=== PATIENT | female | born 1955 | race Caucasian/White ===

== ENCOUNTER → 2018-02-15 | Outpatient (CLI) | payer MEDICARE, OTHER ==
--- NOTE | 2018-02-24 15:17 | MM ---
Reason for exam: screening (asymptomatic). History: Patient is postmenopausal. MG Screening Mammo w CAD Bilateral CC and MLO view(s) were taken. The breast tissue is heterogeneously dense. This may lower the sensitivity of mammography. Nodularity centrally on left breast CC view is more defused. Scattered round and punctate calcifications unchanged. ASSESSMENT: Incomplete: need additional imaging evaluation, BI-RAD 0 RECOMMENDATION: Special view mammogram of the left breast.
== END | disposition home or self-care (01) ==
LOC: RADMAMWWP 10:58
PROVIDERS: ATTEND Family Medicine
DX: Z12.31 Encounter for screening mammogram for malignant neoplasm of breast (principal)
CPT/HCPCS: 77067

== ENCOUNTER → 2018-03-21 | Outpatient (CLI) | payer MEDICARE, OTHER ==
--- NOTE | 2018-03-21 10:37 | MM ---
Reason for exam: additional evaluation requested from abnormal screening. Last mammogram was performed 1 month ago. History: Patient is postmenopausal. Physical Findings: Nurse Summary: less than 0.5cm nodule in the left breast at 11-12 o'clock (nurse kp). MG 3D Work Up W/Cad LT Spot compression CC, spot compression MLO, and ML view(s) were taken of the left breast. Prior study comparison: February 15, 2018, bilateral MG screening mammo w CAD. The breast tissue is heterogeneously dense. This may lower the sensitivity of mammography. There is no discrete abnormality on compression. Unable to complete an ML view due to patient discomfort. These results were verbally communicated with the patient and result sheet given to the patient on 03/21/18. ASSESSMENT: Incomplete: need additional imaging evaluation, BI-RAD 0 RECOMMENDATION: Ultrasound of the left breast.
--- NOTE | 2018-03-21 10:39 | USB ---
Reason for exam: additional evaluation requested from abnormal screening. History: Patient is postmenopausal. US Breast Workup Limited LT Left limited breast ultrasound including focal area of concern, retroareolar and axilla demonstrates a 5 x 2 x 2mm mixed lesion too small to characterize at 12 o'clock BB. These results were verbally communicated with the patient and result sheet given to the patient on 03/21/18. ASSESSMENT: Suspicious, BI-RAD 4 RECOMMENDATION: Surgical consultation and ultrasound core biopsy of the left breast. (left breast ultrasound finding) Called with mammographic findings and has scheduled an appointment for the patient for 03/23/[address] Melendrez. PRELIMINARY REPORT CALLED AND FAXED TO DR. MELENDREZ ON 03/21/18.
== END ==
LOC: RADMAMWWP 08:54
PROVIDERS: ATTEND Family Medicine
DX: R92.8 Other abnormal and inconclusive findings on diagnostic imaging of breast (principal)
CPT/HCPCS: 77065; 76642; G0279; 77061

== ENCOUNTER → 2018-04-29 | Day surgery (SDC) | payer MEDICARE, OTHER ==
[2018-04-29 11:05] VITALS: BMI 40.1
[2018-04-29 12:19] VITALS: BP 140/67; PULSE 90; RESP 16; TEMP 98.2
--- NOTE | 2018-04-29 12:58 | USB ---
EXAMINATION TYPE: US discontinued breast bx LT DATE OF EXAM: 04/29/2018 CLINICAL HISTORY: Abnormal mammogram. Abnormal ultrasound TECHNIQUE: Ultrasound guided core biopsy of left breast with clip placement and follow-up two-view ma mmogram. COMPARISON: Prior mammogram and ultrasound March 21, 2018 FINDINGS: The procedure of ultrasound guided core biopsy was explained to the patient. Benefits, alt ernatives, and risks were discussed. An informed consent was then obtained. Because of patient's underlying medical condition, procedure is attempted with patient in wheelchair. The patient was placed in supine positioning for imaging and for the procedure. Preprocedure imagin g redemonstrates a 4 x 3 mm oval hypoechoic area 12:00 position in the left breast. The overlying ski n was prepped and draped in usual sterile fashion. Lidocaine buffered with bicarbonate was used as a nesthetic into the skin and subcutaneous tissue up to area of concern in the left breast. Patient unger d severe anxiety prior to procedure. Patient had severe pain on insertion of subcutaneous anesthetic. Under ultrasound guidance, a 13-gauge vacuum assisted biopsy gun device was advanced into the left br east. Upon trying to attempt ideal positioning patient experienced severe pain. Biopsy device was wit hdrawn prior to attempted sampling with a forming fluid collection or hematoma long the biopsy track. There must have been subcutaneous arterial vessel puncture. Pressure was held for over 10 minutes t o stop bleed by myself and then by nurse. Because of above and low suspicion lesion procedure was canceled. Patient has moderate to large size hematoma with bruising on scan despite nonsampling. Patient given strict instructions for icing and resting as well as comfort, hematoma should slowly resolve. Ordering surgeon made aware of complication and cancellation by mammography nurses shortly after proc edure was attempted. IMPRESSION: Unsuccessful ultrasound guided core biopsy of area of concern in the left breast as scar led above. I had low suspicion for lesion on review of case prior to attempted procedure, I am okay with BI-RADS 3 probable benign finding and six-month follow-up. Recommendation: As above. I would also consider hematology consult to assess coagulability due to sig nificant bleed without attempted sampling to ensure patient's blood or coagulability profile is in id eal range.
== END ==
LOC: RADUSWWP 10:36
PROVIDERS: ATTEND Surgery
DX: R92.8 Other abnormal and inconclusive findings on diagnostic imaging of breast (principal); Z53.8 Procedure and treatment not carried out for other reasons
CPT/HCPCS: 76641; 19083; J2001

== ENCOUNTER 2018-06-15 10:38 | Inpatient (IN) | payer MEDICARE, OTHER ==
[2018-06-15] MEDS ORDERED: ASPIRIN 81 MG PO STA (11:04)
[2018-06-15] MEDS ORDERED: NITROGLYCERIN OINT 1 INCH/GM PACKET TOPICAL STA (11:04)
--- NOTE | 2018-06-15 11:12 | ED ---
General Adult HPI - General Chief complaint: Chest Pain Stated complaint: Chest Pain Time Seen by Provider: 06/15/18 10:45 Source: EMS, RN notes reviewed Mode of arrival: EMS Limitations: altered mental status, physical limitation - History of Present Illness Initial comments: This is a 62-year-old female who is developmentally delayed and lives in a longterm. Patient was complaining about chest pain. Patient is an extremely poor historian but she is consistent with this complaint of chest pain today. Patient did not seem to be short of breath according to staff there was no episode of diaphoresis. Patient has not had any vomiting or diarrhea that they know of. Patient hasn't had any recent fever or chills. Patient has a history of high cholesterol but no history of any heart disease diabetes or high blood pressure. - Related Data Home Medications Medication Instructions Recorded Confirmed Potassium Chloride [Klor-Con 20] 20 meq PO DAILY 09/02/13 06/15/18 Furosemide [Lasix] 40 mg PO DAILY 12/18/14 06/15/18 Aspirin [Adult Low Dose Aspirin EC] 81 mg PO DAILY 04/13/18 06/15/18 Atorvastatin [Lipitor] 10 mg PO HS 04/13/18 06/15/18 Loratadine [Claritin] 10 mg PO DAILY 04/13/18 06/15/18 Losartan [Cozaar] 25 mg PO DAILY 04/13/18 06/15/18 Acetaminophen [Tylenol Extra 500 mg PO BID PRN 06/15/18 06/15/18 Strength] Divalproex [Depakote] 500 mg PO BID 06/15/18 06/15/18 Allergies Allergy/AdvReac Type Severity Reaction Status Date / Time No Known Allergies Allergy Verified 06/15/18 10:41 Review of Systems ROS Statement: Those systems with pertinent positive or pertinent negative responses have been documented in the HPI. ROS Other: All systems not noted in ROS Statement are negative. Past Medical History Past Medical History: GERD/Reflux, Hyperlipidemia, Hypertension Additional Past Medical History / Comment(s): Cerebral Palsy - per longterm, no other medical hx or surgical hx on file. mild mental retardation. edema in legs. Pt non weight bearing/in wheelchair. 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 Patient is nontoxic and well- hydrated and is in mild distress. ENT: Neck is soft and supple. No significant lymphadenopathy is noted. Oropharynx is clear. Moist mucous membranes. Neck has full range of motion without eliciting any pain. EYES: The sclera were anicteric and conjunctiva were pink and moist. Extraocular movements were intact and pupils were equal round and reactive to light. Eyelids were unremarkable. PULMONARY: Unlabored respirations. Good breath sounds bilaterally. No audible rales rhonchi or wheezing was noted. CARDIOVASCULAR: There is a regular rate and rhythm without any murmurs gallops or rubs. ABDOMEN: Soft and nontender with normal bowel sounds. SKIN: Skin is clear with no lesions or rashes and otherwise unremarkable. NEUROLOGIC: Patient is alert and oriented to her baseline according to staff MUSCULOSKELETAL: Patient's able to move both upper extremities equally and with equal strength. Patient is unable to move either leg. Lack of movement of her legs is at her baseline. LYMPHATICS: No significant lymphadenopathy is noted PSYCHIATRIC: Unable to assess Limitations: altered mental status, physical limitation Course Vital Signs 06/15/18 10:45 Temperature 97.9 F Pulse Rate 95 Respiratory 19 Rate Blood Pressure 109/70 O2 Sat by Pulse 94 L Oximetry Medical Decision Making - Medical Decision Making Chest x-ray showed no acute abnormality. I talked with Dr. Flores he agreed to admit her send the patient I consult cardiology. I continued aspirin and Nitropaste on the floor. - Lab Data Result diagrams: 06/15/18 10:53 06/15/18 10:53 Lab Results 06/15/18 06/15/18 06/15/18 Range/Units 10:53 10:53 10:53 WBC 5.2 (3.8-10.6) k/uL RBC 4.91 (3.80-5.40) m/uL Hgb 15.4 (11.4-16.0) gm/dL Hct 46.9 H (34.0-46.0) % MCV 95.6 (80.0-100.0) fL MCH 31.3 (25.0-35.0) pg MCHC 32.8 (31.0-37.0) g/dL RDW 13.8 (11.5-15.5) % Plt Count 213 (150-450) k/uL Neutrophils % (Manual) 64 % Lymphocytes % (Manual) 26 % Monocytes % (Manual) 10 % Neutrophils # (Manual) 3.33 (1.3-7.7) k/uL Lymphocytes # (Manual) 1.35 (1.0-4.8) k/uL Monocytes # (Manual) 0.52 (0-1.0) k/uL Nucleated RBCs 0 (0-0) /100 WBC Manual Slide Review Performed RBC Morphology Normal PT 11.1 (9.0-12.0) sec INR 1.0 (<1.2) APTT 25.3 (22.0-30.0) sec Sodium 138 (137-145) mmol/L Potassium 3.9 (3.5-5.1) mmol/L Chloride 101 (98-107) mmol/L Carbon Dioxide 33 H (22-30) mmol/L Anion Gap 4 mmol/L BUN 13 (7-17) mg/dL Creatinine 0.61 (0.52-1.04) mg/dL Est GFR (CKD-EPI)AfAm >90 (>60 ml/min/1.73 sqM) Est GFR (CKD-EPI)NonAf >90 (>60 ml/min/1.73 sqM) Glucose 81 (74-99) mg/dL Calcium 9.1 (8.4-10.2) mg/dL Magnesium 1.8 (1.6-2.3) mg/dL Total Bilirubin 0.7 (0.2-1.3) mg/dL AST 20 (14-36) U/L ALT 15 (9-52) U/L Alkaline Phosphatase 65 (38-126) U/L Troponin I (0.000-0.034) ng/mL Total Protein 6.2 L (6.3-8.2) g/dL Albumin 3.5 (3.5-5.0) g/dL 06/15/18 Range/Units 10:53 WBC (3.8-10.6) k/uL RBC (3.80-5.40) m/uL Hgb (11.4-16.0) gm/dL Hct (34.0-46.0) % MCV (80.0-100.0) fL MCH (25.0-35.0) pg MCHC (31.0-37.0) g/dL RDW (11.5-15.5) % Plt Count (150-450) k/uL Neutrophils % (Manual) % Lymphocytes % (Manual) % Monocytes % (Manual) % Neutrophils # (Manual) (1.3-7.7) k/uL Lymphocytes # (Manual) (1.0-4.8) k/uL Monocytes # (Manual) (0-1.0) k/uL Nucleated RBCs (0-0) /100 WBC Manual Slide Review RBC Morphology PT (9.0-12.0) sec INR (<1.2) APTT (22.0-30.0) sec Sodium (137-145) mmol/L Potassium (3.5-5.1) mmol/L Chloride (98-107) mmol/L Carbon Dioxide (22-30) mmol/L Anion Gap mmol/L BUN (7-17) mg/dL Creatinine (0.52-1.04) mg/dL Est GFR (CKD-EPI)AfAm (>60 ml/min/1.73 sqM) Est GFR (CKD-EPI)NonAf (>60 ml/min/1.73 sqM) Glucose (74-99) mg/dL Calcium (8.4-10.2) mg/dL Magnesium (1.6-2.3) mg/dL Total Bilirubin (0.2-1.3) mg/dL AST (14-36) U/L ALT (9-52) U/L Alkaline Phosphatase (38-126) U/L Troponin I <0.012 (0.000-0.034) ng/mL Total Protein (6.3-8.2) g/dL Albumin (3.5-5.0) g/dL Disposition Clinical Impression: Chest pain Disposition: ADMITTED IP TO THIS [facility] Referrals: Tino Glass MD [Primary Care Provider] - 1-2 days Time of Disposition: 12:10
[2018-06-15 11:27] LABS: Partial Thromboplastin Time 25.3 sec (22.0-30.0); Prothrombin Time 11.1 sec (9.0-12.0)
--- NOTE | 2018-06-15 11:27 | XR ---
EXAMINATION TYPE: XR chest 2V DATE OF EXAM: 06/15/2018 COMPARISON: 11/07/2014 HISTORY: Shortness of breath TECHNIQUE: Frontal and lateral views of the chest are obtained. FINDINGS: Scattered senescent parenchymal changes noted. Hyperinflation compatible with COPD. Patchy basilar infiltrates noted. Correlate for developing pneumonia or atelectasis. Heart size is stable. Mediastinal structures are stable and grossly unremarkable. No evidence for hilar prominence. Degenerative changes dorsal spine. IMPRESSION: 1. Patchy basilar infiltrates noted. Correlate for developing pneumonia or atelectasis.
[2018-06-15 11:28] LABS: ALT 15 U/L (9-52); AST 20 U/L (14-36); Albumin 3.5 g/dL (3.5-5.0); Alkaline Phosphatase 65 U/L (38-126); Anion Gap 4 mmol/L; Blood Urea Nitrogen 13 mg/dL (7-17); Calcium 9.1 mg/dL (8.4-10.2); Carbon Dioxide 33 mmol/L (22-30); Chloride 101 mmol/L (98-107); Glucose 81 mg/dL (74-99); Magnesium 1.8 mg/dL (1.6-2.3); Potassium 3.9 mmol/L (3.5-5.1); Sodium 138 mmol/L (137-145); Total Bilirubin 0.7 mg/dL (0.2-1.3); Total Protein 6.2 g/dL (6.3-8.2)
[2018-06-15 11:41] LABS: HCT 46.9 % (34.0-46.0); HGB 15.4 gm/dL (11.4-16.0); MCH 31.3 pg (25.0-35.0); MCHC 32.8 g/dL (31.0-37.0); MCV 95.6 fL (80.0-100.0); Mean Platelet Volume 7.1; Platelet Count 213 k/uL (150-450); RBC 4.91 m/uL (3.80-5.40); RDW 13.8 % (11.5-15.5); WBC 5.2 k/uL (3.8-10.6)
[2018-06-15 12:04] LABS: Lymphocytes # (M) 1.35 k/uL (1.0-4.8); Monocytes # (M) 0.52 k/uL (0-1.0); Neutrophils # (M) 3.33 k/uL (1.3-7.7); Neutrophils % (M) 64 %; Nucleated Red Blood Cells 0 /100 WBC (0-0); Total Cells Counted 100
[2018-06-15] MEDS ORDERED: NITROGLYCERIN SL TABS 0.4 MG TAB SUBLINGUAL PRN (12:11)
[2018-06-15 12:46] VITALS: BMI 40.4
[2018-06-15] MEDS ORDERED: ACETAMINOPHEN TAB 500 MG TAB PO PRN (17:40)
[2018-06-15] MEDS: DIVALPROEX 500 MG TABLET.DR PO SCH (20:56)
[2018-06-15] MEDS: NITROGLYCERIN OINT 1 INCH/GM PACKET TOPICAL SCH ×2 (20:56→23:41)
[2018-06-15] MEDS ORDERED: ATORVASTATIN 10 MG TAB PO SCH (21:00)
[2018-06-15] MEDS: CLINDAMYCIN 150 MG CAP PO SCH (23:08)
[2018-06-15] MEDS: ENOXAPARIN 40 MG/0.4 ML SYRINGE SQ SCH (23:09)
--- NOTE | 2018-06-15 23:46 | HP ---
HISTORY AND PHYSICAL DATE OF ADMISSION: 06/15/2018 DATE OF SERVICE: 06/15/2018 PRESENTING COMPLAINT: Chest pain. HISTORY OF PRESENTING COMPLAINT: This is a 62-year-old patient who follows with visiting physician Dr. Glass. Chronic stable medical conditions include GERD, hyperlipidemia, dysphagia. The patient needs her food to be cut up so she can feed herself; always has aspiration precautions. She has been reported to have a tumor in her throat that was treated with chemo radiation. It is apparently a non-malignant tumor. The patient has cerebral palsy and is mentally delayed. Patient uses a Stevan lift into wheelchair. The patient is incontinent of both stool and urine. The patient was brought in when she complained of chest pain, pointing a finger from the mid sternum to the epigastric area. It does not seem to radiate. There was no nausea or vomiting. No fever or chills. Like stated, because of cerebral palsy it is difficult to really get a history from her. She is dysarthric. REVIEW OF SYSTEMS: CONSTITUTIONAL: No fever or chills. HEENT: None. RESPIRATORY: None. CARDIOVASCULAR: As above. GASTROINTESTINAL: Heartburn. GENITOURINARY: Doubly incontinent. MUSCULOSKELETAL: None. DERMATOLOGICAL: None. HEMATOLOGICAL: None. LYMPHATICS: None. PSYCHIATRY: Not really able to assess. NEUROLOGICAL: Chronic dysphagia. Patient needs Stevan lift to be transferred. PAST MEDICAL HISTORY: 1. GERD. 2. Hyperlipidemia. 3. Dysphagia. Patient has to have cut-up food. 4. Had a tumor in the throat, treated with chemo and radiation; supposed to non- cancerous. 5. Cerebral palsy. 6. Not weight-bearing. Patient needs Stevan lift. 7. Doubly incontinent. 8. Bilateral lower extremity edema. PAST SURGICAL HISTORY: 1. Thyroid surgery. 2. PEG tube radiation. PSYCH HISTORY: Anxiety. SOCIAL HISTORY: Patient resides at [facility]. Has a public guardian. [id number]. Does use a Stevan lift. FAMILY HISTORY: Patient cannot tell. HOME MEDICATIONS: 1. Cozaar 25 mg a day. 2. Lasix 40 mg a day. 3. Tylenol Extra Strength 500 mg b.i.d. p.r.n. 4. Potassium 20 mEq a day. 5. Claritin 10 mg a day. 6. Depakote 500 mg b.i.d. 7. Lipitor 10 mg at bedtime. 8. Aspirin 81 mg a day. ALLERGIES: NONE. PHYSICAL EXAMINATION: VITAL SIGNS: Temperature 97.9, pulse 95, respiration 19, blood pressure 109/70, pulse ox 94% on room air. GENERAL APPEARANCE: Well built; BMI 40.4. Sitting up, awake. EYES: Pupils equal. Conjunctivae normal. HEENT: External appearance of nose and ears normal. Oral cavity normal. NECK: JVD not raised. Mass not palpable. RESPIRATORY: Effort normal. Lungs are clear. CARDIOVASCULAR: First and second sounds normal. No edema. ABDOMEN: Soft, non-tender. Liver and spleen not palpable. LYMPHATIC: No lymph node palpable in neck or axillae. PSYCHIATRY: Patient is able to answer some simple questions. NEUROLOGICAL: Pupils equal. No facial asymmetry. Dysarthric. Has sensation in lower extremity but not really moving it. INVESTIGATIONS: White count 5.2, hemoglobin 15.4, potassium 3.9. BUN and creatinine normal. Troponin x2 negative. EKG tracing, personally reviewed by me, shows sinus rhythm. Chest x-ray film, personally reviewed by me, is an expiratory film. Questionable pulmonary venous prominence with infiltrates. ASSESSMENT: 1. Possible bilateral pneumonia. Cannot rule out aspiration. 2. Obesity; body mass index 40.4. 3. Gastroesophageal reflux disease. 4. Hyperlipidemia. 5. Chronic dysphagia. Patient needs her food to be cut up. 6. 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 7. Cerebral palsy with mental retardation. 8. Doubly incontinent. 9. Bilateral leg edema. PLAN: At this point we will start treating the patient for pneumonia. It may be noted there is no fever and patient's white count is minimal; this could be chemical pneumonitis. [id number] chest pain, but will get a cardiology opinion. Home medications are resumed. Will treat the patient with IV clindamycin. Get a cardiology opinion. MMODL / IJN: [id number] /
[2018-06-16 03:52] LABS: Cholesterol 126 mg/dL (<200); HDL Cholesterol 41 mg/dL (40-60); LDL Cholesterol,Calculated 57 mg/dL (0-99); Triglycerides 141 mg/dL (<150)
[2018-06-16] MEDS: NITROGLYCERIN OINT 1 INCH/GM PACKET TOPICAL SCH (06:14)
[2018-06-16 07:34] VITALS: RESP 18
[2018-06-16] MEDS ORDERED: FUROSEMIDE 40 MG TAB PO SCH (09:00)
[2018-06-16] MEDS ORDERED: LOSARTAN 25 MG TAB PO SCH (09:00)
[2018-06-16] MEDS ORDERED: ASPIRIN 325 MG TAB PO SCH (09:00)
[2018-06-16] MEDS ORDERED: LORATADINE 10 MG TAB PO SCH (09:00)
[2018-06-16] MEDS ORDERED: NON-FORMULARY DRUG (Aspirin [Adult Low Dose Aspirin Ec] 81 MG) PO SCH (09:00)
[2018-06-16] MEDS ORDERED: ASPIRIN 81 MG PO SCH (09:00)
[2018-06-16] MEDS: ENOXAPARIN 40 MG/0.4 ML SYRINGE SQ SCH (09:27)
[2018-06-16] MEDS: DIVALPROEX 500 MG TABLET.DR PO SCH (09:27)
[2018-06-16] MEDS: CLINDAMYCIN 150 MG CAP PO SCH ×2 (09:27→13:27)
--- NOTE | 2018-06-16 09:54 | P.CRDCN ---
History of Present Illness History of present illness: This is a pleasant 62-year-old female past medical history significant for hypertension, dyslipidemia, dysphagia and cerebral palsy. 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 We have been asked to see her in consultation secondary to chest discomfort. Per the patient yesterday after being given her pills she states she felt a burning in the midsternal region radiating down to the epigastric. She states this pain has decreased in intensity however she continues to have what she describes as "bone pain" at the base of the neck on the sternum. She denies any pain in the back, neck, jaw or arms. She denies any shortness of breath, dizziness, nausea, vomiting or diaphoresis. She states she has been coughing a dry cough for the previous 2 days. She is somewhat of a poor historian. She is currently being treated for aspiration pneumonia per the primary care team. EKG reveals sinus mechanism with very minimal ST depression located in the precordial leads. When compared to previous EKG from 2013. Chest x-ray reveals patchy basilar infiltrates. Laboratory data reviewed, WBC 5.2, hemoglobin 15.4, weight was 213, sodium 138, potassium 3.9, creatinine 0.61, magnesium 1.8, cardiac enzymes negative 3, LDL 57 HDL 41. Current cardiac medications include aspirin 81 mg daily, atorvastatin 10 mg daily, Lasix 40 mg daily and losartan 25 mg daily. At the time of my exam: CONSTITUTIONAL: Denies fever. Denies chills. EYES: Denies blurred vision. Denies vision changes. Denies eye pain. EARS, NOSE, MOUTH & THROAT: Denies headache. Denies sore throat. Denies ear pain. CARDIOVASCULAR: Complains of pain in the upper anterior chest that is reproducible. Denies shortness of breath. Denies orthopnea. Denies PND. Denies palpitations. RESPIRATORY: Denies cough. GASTROINTESTINAL: Denies abdominal pain. Denies diarrhea. Denies constipation. Denies nausea. Denies vomiting. MUSCULOSKELETAL: Denies myalgias. INTEGUMENTARY: Denies pruitis. Denies rash. NEUROLOGIC: Denies numbness. Denies tingling. Denies weakness. PSYCHIATRIC: Denies anxiety. Denies depression. ENDOCRINE: Denies fatigue. Denies weight change. Denies polydipsia. Denies polyurina. GENITOURINARY: Denies burning, hematuria or urgency with micturation. HEMATOLOGIC: Denies history of anemia. Denies bleeding. Blood pressure 120/78 heart rate 87 afebrile maintaining oxygen saturation on room air GENERAL: This is a 62-year-old female in no apparent distress at the time of my examination. HEENT: Head is atraumatic, normocephalic. Pupils are equal, round. Sclerae anicteric. Conjunctivae are clear. Mucous membranes of the mouth are moist. Neck is supple. There is no jugular venous distention. No carotid bruit is heard. LUNGS: Clear to auscultation no wheezes, rales or rhonchi. No chest wall tenderness is noted on palpation or with deep breathing. HEART: Regular rate and rhythm without murmurs, rubs or gallops. S1 and S2 heard. ABDOMEN: Soft, nontender. Bowel sounds are heard. No organomegaly noted. EXTREMITIES: No evidence of peripheral edema and no calf tenderness noted. VASCULAR: Radial and dorsalis pedis pulses palpated, no evidence of clubbing. NEUROLOGIC: Patient is awake, alert and oriented x3. ASSESSMENT Chest pain, atypical for angina. An acute coronary event has been ruled out. Hypertension Dyslipidemia History of cerebral palsy History of dysphasia Morbid obesity, BMI 40 PLAN An acute coronary event has been ruled out. Obtain 2-D echocardiogram and Doppler study to assess cardiac structure and function. Symptoms are very atypical for angina and are mildly reproducible on palpation. Pain may be related to possible aspiration pneumonia as well as costochondritis due to coughing. No further cardiac workup at this time. Continue current medical regimen. Thank you kindly for this consultation. Nurse Practitioner note has been reviewed, I agree with a documented findings and plan of care. Patient was seen and examined. Past Medical History Past Medical History: GERD/Reflux, Hyperlipidemia Additional Past Medical History / Comment(s): DYSPHAGIA-pt needs food cut up and can feed self with staff watching her, HOB up at all times, has "tumor" in her throat treated with chemo/radiation but staff state it is noncancerous, cerebral palsey/mentally delayed, nonweight bearing-is chase lifted to wheelchair, needs to be turned-unable to do herself, incontinent urine/stool, bilateral leg edema. History of Any Multi-Drug Resistant Organisms: None Reported Past Surgical History: No Surgical Hx Reported Additional Past Surgical History / Comment(s): Thyroid surgery, peg tube during throat radiation-out now. Past Anesthesia/Blood Transfusion Reactions: No Reported Reaction Smoking Status: Never smoker - Past Family History Father History Unknown: Yes Mother History Unknown: Yes Medications and Allergies Home Medications Medication Instructions Recorded Confirmed Type Potassium Chloride [Klor-Con 20] 20 meq PO DAILY 09/02/13 06/15/18 History Furosemide [Lasix] 40 mg PO DAILY 12/18/14 06/15/18 History Aspirin [Adult Low Dose Aspirin EC] 81 mg PO DAILY 04/13/18 06/15/18 History Atorvastatin [Lipitor] 10 mg PO HS 04/13/18 06/15/18 History Loratadine [Claritin] 10 mg PO DAILY 04/13/18 06/15/18 History Losartan [Cozaar] 25 mg PO DAILY 04/13/18 06/15/18 History Acetaminophen [Tylenol Extra 500 mg PO BID PRN 06/15/18 06/15/18 History Strength] Divalproex [Depakote] 500 mg PO BID 06/15/18 06/15/18 History Allergies Allergy/AdvReac Type Severity Reaction Status Date / Time No Known Allergies Allergy Verified 06/15/18 10:41 Physical Exam Vitals: Vital Signs Temp Pulse Pulse Pulse Resp BP BP 06/16/18 07:15 97.5 F L 87 18 06/16/18 03:29 98.0 F 103 H 15 107/55 06/16/18 03:18 14 06/15/18 23:46 98.0 F 62 14 137/71 06/15/18 23:30 16 06/15/18 20:00 16 06/15/18 19:16 97.5 F L 92 16 114/75 06/15/18 15:49 06/15/18 15:09 97.5 F L 96 18 102/65 06/15/18 14:30 92 20 102/69 06/15/18 14:00 89 18 105/62 06/15/18 13:30 86 113/73 06/15/18 13:00 86 17 129/73 06/15/18 12:30 86 18 121/73 06/15/18 12:00 84 16 122/70 06/15/18 11:30 85 15 105/80 06/15/18 10:45 97.9 F 95 19 109/70 BP Pulse Ox 06/16/18 07:15 128/78 94 L 06/16/18 03:29 96 06/16/18 03:18 06/15/18 23:46 95 06/15/18 23:30 06/15/18 20:00 06/15/18 19:16 97 06/15/18 15:49 97 06/15/18 15:09 97 06/15/18 14:30 95 06/15/18 14:00 98 06/15/18 13:30 97 06/15/18 13:00 100 06/15/18 12:30 99 06/15/18 12:00 97 06/15/18 11:30 96 06/15/18 10:45 94 L Intake and Output 06/15/18 06/16/18 06/16/18 22:59 06:59 14:59 Intake Total 236 0 Balance 236 0 Intake: Oral 236 0 Other: Voiding Method Diaper Diaper Diaper Incontinent Incontinent Incontinent # Voids 1 1 Results 06/15/18 10:53 06/15/18 10:53 Cardiac Enzymes 06/15/18 06/15/18 06/15/18 Range/Units 10:53 10:53 18:00 AST 20 (14-36) U/L Troponin I <0.012 <0.012 (0.000-0.034) ng/mL 06/15/18 Range/Units 23:19 AST (14-36) U/L Troponin I <0.012 (0.000-0.034) ng/mL Coagulation 06/15/18 Range/Units 10:53 PT 11.1 (9.0-12.0) sec APTT 25.3 (22.0-30.0) sec Lipids 06/15/18 Range/Units 10:53 Triglycerides 141 (<150) mg/dL Cholesterol 126 (<200) mg/dL HDL Cholesterol 41 (40-60) mg/dL CBC 06/15/18 Range/Units 10:53 WBC 5.2 (3.8-10.6) k/uL RBC 4.91 (3.80-5.40) m/uL Hgb 15.4 (11.4-16.0) gm/dL Hct 46.9 H (34.0-46.0) % Plt Count 213 (150-450) k/uL Comprehensive Metabolic Panel 06/15/18 Range/Units 10:53 Sodium 138 (137-145) mmol/L Potassium 3.9 (3.5-5.1) mmol/L Chloride 101 (98-107) mmol/L Carbon Dioxide 33 H (22-30) mmol/L BUN 13 (7-17) mg/dL Creatinine 0.61 (0.52-1.04) mg/dL Glucose 81 (74-99) mg/dL Calcium 9.1 (8.4-10.2) mg/dL AST 20 (14-36) U/L ALT 15 (9-52) U/L Alkaline Phosphatase 65 (38-126) U/L Total Protein 6.2 L (6.3-8.2) g/dL Albumin 3.5 (3.5-5.0) g/dL Current Medications Generic Name Dose Route Start Last Admin Trade Name Freq PRN Reason Stop Dose Admin Acetaminophen 500 mg 06/15/18 17:40 06/15/18 21:17 Tylenol Tab PO 500 mg BID PRN Administration Pain Aspirin 81 mg 06/16/18 09:00 06/16/18 09:26 Aspirin PO 81 mg DAILY HUNTER Administration Atorvastatin Calcium 10 mg 06/15/18 21:00 06/15/18 20:56 Lipitor PO 10 mg HS HUNTER Administration Clindamycin HCl 300 mg 06/15/18 22:45 06/16/18 09:27 Cleocin PO 300 mg QID HUNTER Administration Divalproex Sodium 500 mg 06/15/18 21:00 06/16/18 09:27 Depakote PO 500 mg BID HUNTER Administration Enoxaparin Sodium 40 mg 06/15/18 22:45 06/16/18 09:27 Lovenox SQ 40 mg DAILY HUNTER Administration Furosemide 40 mg 06/16/18 09:00 06/16/18 09:27 Lasix PO 40 mg DAILY HUNTER Administration Loratadine 10 mg 06/16/18 09:00 06/16/18 09:26 Claritin PO 10 mg DAILY HUNTER Administration Losartan Potassium 25 mg 06/16/18 09:00 06/16/18 09:27 Cozaar PO 25 mg DAILY HUNTER Administration Nitroglycerin 0.4 mg 06/15/18 12:11 Nitrostat SUBLINGUAL Q5M PRN Chest Pain Intake and Output 06/15/18 06/16/18 06/16/18 22:59 06:59 14:59 Intake Total 236 0 Balance 236 0 Intake: Oral 236 0 Other: Voiding Method Diaper Diaper Diaper Incontinent Incontinent Incontinent # Voids 1 1 06/15/18 10:53 06/15/18 10:53
[2018-06-16 11:25] VITALS: BP 137/85; PULSE 89; TEMP 97.3
--- NOTE | 2018-06-17 09:11 | DS ---
DISCHARGE SUMMARY DATE OF ADMISSION: 06/15/2018 DATE OF DISCHARGE: 06/16/2018 FINAL DIAGNOSES: 1. Bilateral chemical pneumonitis probably from aspiration, often times does not need antibiotics. 2. Obesity; body mass index 40.4. 3. Gastroesophageal reflux disease. 4. Hyperlipidemia. 5. Chronic dysphagia. 6. 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 7. Cerebral palsy with mental retardation. 8. Double incontinence. 9. Chronic bilateral lower extremity edema, probably from venous insufficiency. HOSPITAL COURSE: This patient presented with chest pain, felt to have some aspiration pneumonitis. Did get antibiotics. Seen by Cardiology. The pain was not felt to be cardiac. The patient is otherwise doing well. On examination, temperature 97.3, pulse 89, pulse ox 96% on room air. LUNGS: Fair entry. INVESTIGATIONS: White count 5.2. Troponin x3 negative. DISCHARGE MEDICATIONS: 1. Potassium 20 mEq a day. 2. Lasix 40 mg a day. 3. Aspirin 81 mg a day. 4. Lipitor 10 mg q.h.s. 5. Claritin 10 mg a day. 6. Cozaar 25 mg a day. 7. Tylenol strength 500 mg p.o. b.i.d. p.r.n. 8. Depakote 500 mg p.o. b.i.d. 9. Clindamycin 300 mg p.o. q.i.d. Other home instructions as before. Follow up with Visiting Physician, Dr. Glass in 1 to 2 days. CONSULTATION: Dr. Tidwell from Cardiology. MMODL / IJN: [id number] /
--- NOTE | 2018-06-17 10:44 | ECHOF ---
Referral Reason:cp MEASUREMENTS -------- HEIGHT: 167.6 cm WEIGHT: 108.9 kg BP: RVIDd: 2.6 cm (< 3.3) IVSd: 1.0 cm (0.6 - 1.1) LVIDd: 4.3 cm (3.9 - 5.3) LVPWd: 1.1 cm (0.6 - 1.1) IVSs: 1.5 cm LVIDs: 2.9 cm LVPWs: 1.3 cm LA Diam: 2.8 cm (2.7 - 3.8) Ao Diam: 3.1 cm (2.0 - 3.7) AV Cusp: 1.5 cm (1.5 - 2.6) MV EXCURSION: 21.866 mm (> 18.000) MV EF SLOPE: 90 mm/s (70 - 150) EPSS: 0.2 cm MV E Arsalan: 0.83 m/s MV DecT: 274 ms MV A Arsalan: 0.77 m/s MV E/A Ratio: 1.08 RAP: 5.00 mmHg RVSP: 26.52 mmHg FINDINGS -------- Sinus rhythm. This was a technically difficult study with suboptimal views. The left ventricular size is normal. There is borderline concentric left ventricular hypertrophy. Overall left ventricular systolic function is normal with, an EF between 60 - 65 %. The right ventricle is normal in size. The left atrial size is normal. The right atrium was not well visualized. 5 ml of Lumason was utilized for enhancement of images. There is mild aortic valve sclerosis. There is trace to mild mitral regurgitation. Mild tricuspid regurgitation present. Right ventricular systolic pressure is normal at < 35 mmHg. The pulmonic valve was not well visualized. The aortic root size is normal. Normal inferior vena cava with normal inspiratory collapse consistent with estimated right atrial pre ssure of 5 mmHg. There is no pericardial effusion. CONCLUSIONS -------- 1. Sinus rhythm. 2. This was a technically difficult study with suboptimal views. 3. The left ventricular size is normal. 4. There is borderline concentric left ventricular hypertrophy. 5. Overall left ventricular systolic function is normal with, an EF between 60 - 65 %. 6. The right ventricle is normal in size. 7. The left atrial size is normal. 8. The right atrium was not well visualized. 9. 5 ml of Lumason was utilized for enhancement of images. 10. There is mild aortic valve sclerosis. 11. There is trace to mild mitral regurgitation. 12. Mild tricuspid regurgitation present. 13. Right ventricular systolic pressure is normal at < 35 mmHg. 14. The pulmonic valve was not well visualized. 15. The aortic root size is normal. 16. Normal inferior vena cava with normal inspiratory collapse consistent with estimated right atrial pressure of 5 mmHg. 17. There is no pericardial effusion. GENERAL TECHNICIAN: Porsche Howard RDCS
--- NOTE | 2018-06-20 07:50 | CDI ---
Documentation Clarification Form Date: 06/20/18 From: Amarjit Yanes Phone: call to [phone] Admit Date: 06/16/2018 11:11:00 AM Patient Name: Germaine Calix Visit Number: [id number] Discharge Date: 06/16/2018 4:37:00 PM ATTENTION: The Clinical Documentation Specialists (CDI) and [facility] Coding Staff appreciate your assistance in clarifying documentation. Please respond to the clarification below the line at the bottom and electronically sign. The CDI & [facility] Coding staff will review the response and follow-up if needed. Please note: Queries are made part of the Legal Health Record. If you have any questions, please contact the author of this message via ITS. Dr. Marvin Flores Pneumonia was documented in your notes on the consult note and in Discharge summary as chemical pneumonitis and under hospital course given Aspiration pneumonitis, d/c'd with clindamycin abx.Patient Aspiration pneumonitis due to chemicals,so can we consider toxic effects of other chemical substance... History/Risk Factors: chronic dysphagia Treatment: conservative management Antibiotics: Clindamycin. In order to capture the severity of condition, please clarify if the condition signifies and you are treating for: Aspiration Pneumonia, identify if: Due to solids or liquids Due to Chemicals,fumes Aspiraion pneumonitis followed by Toxic effect due to chemicals___ Other, please specify Unable to determine aspiration pneumonia due to solids and liquids, POA MTDD
== END 2018-06-16 16:37 | disposition home health service (06) | DRG 178 ==
LOC: EC 10:38 → EEVIPCON 10:38 → 1SOBS 12:11 → UNDOADMOB 12:11 → 1SOBS 12:31 → OBSVTOIN 06-16 11:11
PROVIDERS: ADMIT Hospitalist; ATTEND Hospitalist
DX: J69.8 Pneumonitis due to inhalation of other solids and liquids (principal); Z68.41 Body mass index [BMI] 40.0-44.9, adult; E66.01 Morbid (severe) obesity due to excess calories; D49.0 Neoplasm of unspecified behavior of digestive system; N39.46 Mixed incontinence; E78.00 Pure hypercholesterolemia, unspecified; E78.5 Hyperlipidemia, unspecified; G80.9 Cerebral palsy, unspecified; R47.1 Dysarthria and anarthria; I10 Essential (primary) hypertension; F79 Unspecified intellectual disabilities; I87.2 Venous insufficiency (chronic) (peripheral); K21.9 Gastro-esophageal reflux disease without esophagitis; R13.10 Dysphagia, unspecified; Z79.82 Long term (current) use of aspirin; Z79.899 Other long term (current) drug therapy; Z92.21 Personal history of antineoplastic chemotherapy; Z92.3 Personal history of irradiation; Z98.890 Other specified postprocedural states
CPT/HCPCS: 36415; 71046; 80053; 80061; 82607; 82668; 82747; 83021; 83735; 83883; 83921; 84165; 84484; 85025; 85045; 85610; 85730; 93005; 93306; 99285

== ENCOUNTER → 2018-06-23 | Outpatient (CLI) | payer MEDICARE, OTHER ==
--- NOTE | 2018-06-23 10:30 | CT ---
EXAMINATION TYPE: CT abdomen pelvis w con DATE OF EXAM: 06/23/2018 COMPARISON: 01/15/2014 HISTORY: 62-year-old female cerebral palsy with pain, Diverticulitis TECHNIQUE: Contiguous axial scanning of the abdomen and pelvis following administration of 100 ml Iso alec 300 IV contrast. Delayed images through the kidneys and coronal/sagittal reconstructions perform ed. CT DLP: 2707.5 mGycm Automated exposure control for dose reduction was used. FINDINGS: Heart normal size without pericardial effusion. Prominent hazy bibasilar atelectasis without pleural effusion. Redemonstrated are multiple hepatic cysts, largest right hepatic dome measures 5.7 cm, slightly incre ased from 5.2 cm in 2014. Portal venous system is patent. No biliary ductal dilatation. Gallbladder, adrenal glands, kidneys, spleen, and pancreas appear within normal limits. Small hiatal hernia. No dilated small bowel, free fluid, or free air. No mesenteric or retroperitoneal lymphadenopathy. Tiny fatty umbilical hernia. Normal appendix. Moderate stool in the right-sided colon. There is diverticulosis of the lower descen ding and proximal sigmoid colon without pericolonic inflammatory change seen. Bladder is distended. Uterus shows an intramural and partially subserosal fibroid measuring 4.4 cm al jose l the left posterolateral lower uterine segment/body. The endometrial stripe may measure up to 1.0 cm. Both ovaries are visualized. Rectum appears normal. No abnormal fluid collection in the pelvis or pelvic lymphadenopathy. Bones: There is an S-shaped scoliosis with diffuse muscular atrophy and degenerative changes at the h ips. IMPRESSION: 1. LOWER DESCENDING AND PROXIMAL SIGMOID COLONIC DIVERTICULOSIS WITHOUT EVIDENCE FOR ACUTE DIVERTICUL ITIS. 2. SMALL HIATAL HERNIA. 3. POSSIBLE ABNORMAL THICKENING OF THE ENDOMETRIAL STRIPE UP TO 1.0 CM. FOLLOW-UP PELVIC ULTRASOUND R ECOMMENDED TO FURTHER EVALUATE STRIPE THICKNESS. 4. LEFT POSTEROLATERAL LOWER UTERINE SEGMENT/BODY FIBROID MEASURING 4.4 CM IS PARTIALLY SUBSEROSAL AN D WAS PRESENT PREVIOUSLY. 4. MULTIPLE HEPATIC CYSTS REDEMONSTRATED, LARGEST MEASURING 5.7 CM IN THE RIGHT HEPATIC DOME.
== END | disposition home or self-care (01) ==
LOC: RADCTMAIN 08:14
PROVIDERS: ATTEND Surgery Plastic and Reconstructive Surgery
DX: K57.30 Diverticulosis of large intestine without perforation or abscess without bleeding (principal); K44.9 Diaphragmatic hernia without obstruction or gangrene; D25.9 Leiomyoma of uterus, unspecified; K76.89 Other specified diseases of liver
CPT/HCPCS: 74177; Q9967 ×2

== ENCOUNTER 2018-08-03 08:25 | Day surgery (SDC) | payer MEDICARE, OTHER ==
[2018-08-02 08:34] VITALS: BMI 38.7
--- NOTE | 2018-08-03 07:53 | P.GSHP ---
History of Present Illness H&P Date: 08/03/18 CHIEF COMPLAINT: GERD and colon screen HISTORY OF PRESENT ILLNESS: The patient is a 62-year-old female who presents with gastroesophageal reflux disease and need for colon screen. Upper and lower endoscopy were offered for further evaluation and management. PAST MEDICAL HISTORY: Please see list. PAST SURGICAL HISTORY: Please see list. MEDICATIONS: Please see list. ALLERGIES: Please see list. SOCIAL HISTORY: No illicit drug use FAMILY HISTORY: No reports of Crohn disease or ulcerative colitis. REVIEW OF ORGAN SYSTEMS: CONSTITUTIONAL: No reports of fevers or chills. GI: Denies any blood in stools or constipation. PHYSICAL EXAM: VITAL SIGNS: Stable GENERAL: Well-developed pleasant in no acute distress. HEENT: No scleral icterus. Extraocular movements grossly intact. Moist buccal mucosa. NECK: Supple without lymphadenopathy. CHEST: Unlabored respirations. Equal bilateral excursions. CARDIOVASCULAR: Regular rate and rhythm. Distal 2+ pulses. ABDOMEN: Soft, nondistended. MUSCULOSKELETAL: No clubbing, cyanosis, or edema. ASSESSMENT: 1. Gastroesophageal reflux disease 2. Colon screen. PLAN: 1. Recommend proceeding with an upper and lower endoscopy Past Medical History Past Medical History: GERD/Reflux, Hyperlipidemia Additional Past Medical History / Comment(s): DYSPHAGIA-pt needs food cut up and can feed self with staff watching her, HOB up at all times, has "tumor" in her throat treated with chemo/radiation but staff state it is noncancerous, cerebral palsey/mentally delayed, nonweight bearing-is chase lifted to wheelchair, needs to be turned-unable to do herself, incontinent urine/stool, bilateral leg edema. History of Any Multi-Drug Resistant Organisms: None Reported Past Surgical History: No Surgical Hx Reported Additional Past Surgical History / Comment(s): Thyroid surgery, peg tube during throat radiation-out now. Past Anesthesia/Blood Transfusion Reactions: No Reported Reaction Smoking Status: Never smoker - Past Family History Father History Unknown: Yes Mother History Unknown: Yes Medications and Allergies Home Medications Medication Instructions Recorded Confirmed Type Potassium Chloride [Klor-Con 20] 20 meq PO QAM 09/02/13 08/02/18 History Furosemide [Lasix] 40 mg PO QAM 12/18/14 08/02/18 History Aspirin [Adult Low Dose Aspirin EC] 81 mg PO DAILY 04/13/18 08/02/18 History Atorvastatin [Lipitor] 10 mg PO HS 04/13/18 08/02/18 History Loratadine [Claritin] 10 mg PO DAILY PRN 04/13/18 08/02/18 History Losartan [Cozaar] 25 mg PO QAM 04/13/18 08/02/18 History Acetaminophen [Tylenol Extra 500 mg PO BID PRN 06/15/18 08/02/18 History Strength] Divalproex [Depakote] 500 mg PO BID 06/15/18 08/02/18 History Ergocalciferol [Vitamin D2] 50,000 unit PO WE 07/01/18 08/02/18 History Omeprazole [PriLOSEC] 20 mg PO QAM 07/01/18 08/02/18 History Allergies Allergy/AdvReac Type Severity Reaction Status Date / Time No Known Allergies Allergy Verified 08/01/18 15:35
[~2018-08-03 08:25] MED LIST: LACTATED RINGERS 1,000 ML IV SCH; LIDOCAINE 1% 20 ML VIAL (10MG/ML) FOR IV START INTRADERMA PRN
[2018-08-03 08:42] VITALS: TEMP 97.6
[2018-08-03] MEDS ORDERED: LACTATED RINGERS 1,000 ML IV ONE (08:42)
[2018-08-03] MEDS ORDERED: PROPOFOL 10 MG/ML 20 ML VIAL IV ONE (09:54)
[2018-08-03] MEDS ORDERED: LIDOCAINE 1% INJ 10MG/ML (20 ML MDV) ONE (09:54)
--- NOTE | 2018-08-03 10:13 | P.PCN ---
Date of Procedure: 08/03/18 Description of Procedure: PREOPERATIVE DIAGNOSIS: Gastroesophageal reflux disease. Morbid obesity. POSTOPERATIVE DIAGNOSIS: Morbid obesity. Gastritis. Gastroesophageal reflux disease. Diaphragmatic hiatal hernia Gastritis along antrum OPERATION: Esophagogastroduodenoscopy with biopsies along antrum. SURGEON: Goldie Galvan MD ANESTHESIA: MAC. INDICATIONS: The patient is a 62-year-old female who presents with a history of reflux disease. Benefits and risks of the procedure were described. Informed consent was obtained. DESCRIPTION: The patient was brought into the endoscopy suite and laid in the left lateral decubitus position. An Olympus gastroscope was passed along the posterior oropharynx down to the distal esophagus where the squamocolumnar junction was encountered at 36 cm from the incisors. The stomach was entered and no bile reflux was found. Additional findings are listed below. Biopsies with cold forceps were obtained of the antrum. The first through third portion of the duodenum was examined and unremarkable. Retroflexion of the scope confirmed Hill grade 4 lower esophageal valve. The squamocolumnar junction demonstrated LA grade B erosive esophagitis. The stomach was desufflated. The patient tolerated the procedure well. FINDINGS: Squamocolumnar junction 36 cm from the incisors. Diaphragmatic hiatus at 40 cm. Hiatal hernia, 4 cm Hill grade 4 lower esophageal valve. LA grade B erosive esophagitis. No active duodenitis. Chronic gastritis with recent bleed RECOMMENDATIONS: Upper endoscopy as needed.
--- NOTE | 2018-08-03 10:43 | P.PCN ---
Date of Procedure: 08/03/18 Description of Procedure: PREOPERATIVE DIAGNOSIS: Colonoscopy screening, first Family history colon cancer POSTOPERATIVE DIAGNOSIS: Colonoscopy screening, first Family history colon cancer Sigmoid diverticulosis OPERATION: Colonoscopy to the ascending colon SURGEON: Goldie Galvan MD. ANESTHESIA: MAC. INDICATIONS: The patient is a 62-year-old female who presents for colonoscopy screening. Benefits and risks were described and informed consent was obtained. DESCRIPTION OF PROCEDURE: The patient had undergone Suprep. She had been brought into the operating room and laid in the left lateral decubitus position. After adequate intravenous sedation, the rectum was examined with 2% lidocaine jelly. No external hemorrhoids were encountered. The rectal tone was within normal limits. No lesions were palpated in the rectal vault. An Olympus colonoscope was advanced through a very tortuous sigmoid colon up to the hepatic flexure with brief view of the ascending colon. The prep was excellent with visualization of the mucosal folds. The scope was removed with visualization of each mucosal fold. Sigmoid scattered diverticulosis was encountered. No colon polyps were found up to the hepatic flexure. No evidence of focal colitis was found. Retroflexion of the scope demonstrated grade 1 internal hemorrhoids without active bleeding or inflammation. The colon was desufflated. The patient had tolerated the procedure well. Withdrawal time was over 6 minutes. FINDINGS: Aronchick preparation quality scale 1 (1-5) Internal hemorrhoids, grade 1 No external hemorrhoids No arteriovenous malformations Sigmoid diverticulosis which is highly redundant. Scope advanced to the hepatic flexure/ascending colon No focal colitis. RECOMMENDATIONS: With high risk family history, repeat colonoscopy 3 years, 2021 Plan - Discharge Summary Discharge Rx Participant: No New Discharge Prescriptions: No Action Potassium Chloride [Klor-Con 20] 20 meq PO QAM Furosemide [Lasix] 40 mg PO QAM Losartan [Cozaar] 25 mg PO QAM Atorvastatin [Lipitor] 10 mg PO HS Loratadine [Claritin] 10 mg PO DAILY PRN PRN Reason: allergies Aspirin [Adult Low Dose Aspirin EC] 81 mg PO DAILY Divalproex [Depakote] 500 mg PO BID Acetaminophen [Tylenol Extra Strength] 500 mg PO BID PRN PRN Reason: Pain Ergocalciferol [Vitamin D2] 50,000 unit PO WE Omeprazole [PriLOSEC] 20 mg PO QAM Discharge Medication List Potassium Chloride [Klor-Con 20] 20 meq PO QAM 09/02/13 [History] Furosemide [Lasix] 40 mg PO QAM 12/18/14 [History] Aspirin [Adult Low Dose Aspirin EC] 81 mg PO DAILY 04/13/18 [History] Atorvastatin [Lipitor] 10 mg PO HS 04/13/18 [History] Loratadine [Claritin] 10 mg PO DAILY PRN 04/13/18 [History] Losartan [Cozaar] 25 mg PO QAM 04/13/18 [History] Acetaminophen [Tylenol Extra Strength] 500 mg PO BID PRN 06/15/18 [History] Divalproex [Depakote] 500 mg PO BID 06/15/18 [History] Ergocalciferol [Vitamin D2] 50,000 unit PO WE 07/01/18 [History] Omeprazole [PriLOSEC] 20 mg PO QAM 07/01/18 [History] Follow up Appointment(s)/Referral(s): Goldie Galvan MD [STAFF PHYSICIAN] - 08/23/18 Patient Instructions/Handouts: Diverticulosis Diet (GEN), Diverticulosis (GEN) Activity/Diet/Wound Care/Special Instructions: Repeat colonoscopy in 3 years, 2020 or [facility] Discharge Disposition: HOME SELF-CARE
[2018-08-03 11:19] VITALS: BP 110/55; PULSE 81; RESP 20
== END 2018-08-03 12:03 | disposition home or self-care (01) ==
LOC: ORWHC2ENDO 08:25
PROVIDERS: ATTEND Surgery Plastic and Reconstructive Surgery
DX: Z12.11 Encounter for screening for malignant neoplasm of colon (principal); K29.50 Unspecified chronic gastritis without bleeding; K44.9 Diaphragmatic hernia without obstruction or gangrene; K64.0 First degree hemorrhoids; K21.9 Gastro-esophageal reflux disease without esophagitis; E78.5 Hyperlipidemia, unspecified; K57.30 Diverticulosis of large intestine without perforation or abscess without bleeding; E66.01 Morbid (severe) obesity due to excess calories; K22.10 Ulcer of esophagus without bleeding; Z79.82 Long term (current) use of aspirin; Z79.899 Other long term (current) drug therapy; Z80.0 Family history of malignant neoplasm of digestive organs; Z92.21 Personal history of antineoplastic chemotherapy; Z92.3 Personal history of irradiation; Z68.38 Body mass index [BMI] 38.0-38.9, adult
CPT/HCPCS: 43239; 88305; G0105; J2001; J2704; 45378

== ENCOUNTER → 2018-09-19 | Outpatient (CLI) | payer MEDICARE, OTHER ==
--- NOTE | 2018-09-19 13:53 | MM ---
Reason for exam: follow-up at short interval from prior study. Last mammogram was performed 6 months ago. History: Patient is postmenopausal. US discontinued breast bx LT of the left breast, April 29, 2018. Physical Findings: Nurse did not find any significant physical abnormalities on exam. MG Diagnostic Mammo LT w CAD CC and MLO view(s) were taken of the left breast. Prior study comparison: March 21, 2018, left breast MG 3d work up w/cad LT. February 15, 2018, bilateral MG screening mammo w CAD. The breast tissue is heterogeneously dense. This may lower the sensitivity of mammography. Stable benign calcifications. There is no discrete abnormality. No significant new findings when compared with previous films. These results were verbally communicated with the patient and result sheet given to the patient on 09/19/18. ASSESSMENT: Benign, BI-RAD 2 RECOMMENDATION: Return to routine screening mammogram schedule for both breasts. Back on schedule.
== END | disposition home or self-care (01) ==
LOC: RADMAMWWP 12:49
PROVIDERS: ATTEND Surgery
DX: R92.8 Other abnormal and inconclusive findings on diagnostic imaging of breast (principal)
CPT/HCPCS: 77065

== ENCOUNTER → 2019-10-25 | Outpatient (CLI) | payer MEDICARE, OTHER ==
--- NOTE | 2019-10-25 11:47 | FL ---
EXAMINATION TYPE: FL barium swallow w video DATE OF EXAM: 10/25/2019 MODIFIED SWALLOW / DEGLUTITION STUDY CLINICAL HISTORY: Dysphagia. History of radiation treatment for throat cancer. TECHNIQUE: Deglutition study is performed utilizing thin liquid barium, barium thick pudding, and ba rium coated cracker. There are 0 spot images saved to PACS. Total of 50 seconds of fluoroscopic time utilized. COMPARISON: CT neck November 07, 2014. FINDINGS: Examination is suboptimal as patient has poor tolerance of contrast or barium and both can only perform limited swallows. The oral and pharyngeal phases show satisfactory initiation and propag ation with modalities attempted. Satisfactory mastication is seen with single solid modality tested. There is no evidence of penetration or aspiration with modalities tested. Mild pharyngeal residue wa s appreciated. Persistent grade 1 retrolisthesis C3 on C4. Persistent large anterior osteophytes C3 l evel extending from the C5 level noted. IMPRESSION: Suboptimal study. No penetration or aspiration observed. Please refer to speech therapist notes for further details if necessary.
== END | disposition home or self-care (01) ==
LOC: RADFLMAIN 10:56
PROVIDERS: ATTEND Family Medicine
DX: R13.10 Dysphagia, unspecified (principal); E78.5 Hyperlipidemia, unspecified; I10 Essential (primary) hypertension; R05 Cough
CPT/HCPCS: 74230

== ENCOUNTER 2019-12-15 10:12 | Emergency (ER) | payer MEDICARE, OTHER ==
--- NOTE | 2019-12-15 12:19 | XR ---
EXAMINATION TYPE: XR chest 1V DATE OF EXAM: 12/15/2019 CLINICAL HISTORY: cough. TECHNIQUE: Portable frontal view of the chest. COMPARISON: 06/15/2018 chest radiograph FINDINGS: The cardiomediastinal silhouette is within normal limits for size. Pulmonary vasculature i s normal. There is no focal air space opacity, pleural effusion, or pneumothorax seen. Old right-side d rib fracture deformities. IMPRESSION: No acute cardiopulmonary process.
[2019-12-15 13:01] VITALS: PULSE 90; RESP 18
[2019-12-15 13:09] LABS: Appearance,Urine Clear (Clear); Bacteria,Urine Rare /hpf; Bilirubin,Urine Negative (Negative); Blood,Urine Negative (Negative); Color,Urine Light Yellow; Glucose,Urine (UA) Negative (Negative); Ketones,Urine Negative (Negative); Leukocyte Esterase,Urine Small (Negative); Mucus,Urine Rare /hpf; Nitrite,Urine Negative (Negative); PH, Urine 6.5 (5.0-8.0); Protein,Urine Negative (Negative); Specific Gravity,Urine 1.009 (1.001-1.035); Squamous Epithelial Cell,Urine <1 /hpf (0-4); Urobilinogen,Urine <2.0 mg/dL (<2.0); WBC,Urine 1 /hpf (0-5)
--- NOTE | 2019-12-15 13:43 | ED ---
General Adult HPI - General Chief complaint: Upper Respiratory Infection Stated complaint: COVID symptoms Time Seen by Provider: 12/15/19 10:27 Source: patient, family, RN notes reviewed, old records reviewed Mode of arrival: wheelchair Limitations: altered mental status - History of Present Illness Initial comments: 64-year-old female patient with past medical history of cerebral palsyd to ED for evaluation of cough. Patient reports coughing for several days. Denies any difficulty breathing or any focal area of pain. Systemic: Pt denies fatigue, rash. Pt denies weakness, night sweats, weight loss. Neuro: Pt denies headache, visual disturbances, syncope or pre-syncope. HEENT: Pt denies ocular discharge or irritation, otalgia, rhinorrhea, or notable lymphadenopathy. Cardiopulmonary: Pt denies chest pain, SOB, heart palpitations, dyspnea on exertion. Abdominal/GI: Pt denies abdominal pain, n/v/d. : Pt denies dysuria, burning w/ urination, frequency/urgency. Denies new onset urinary or bowel incontinence. MSK: Pt denies myalgia, loss of strength or function in extremities. Neuro: Pt denies new onset weakness, paresthesias. - Related Data Home Medications Medication Instructions Recorded Confirmed Potassium Chloride [Klor-Con 20] 20 meq PO DAILY@0700 09/02/13 12/15/19 Furosemide [Lasix] 40 mg PO DAILY@0700 12/18/14 12/15/19 Aspirin [Adult Low Dose Aspirin EC] 81 mg PO DAILY@0700 04/13/18 12/15/19 Atorvastatin [Lipitor] 10 mg PO HS@2100 04/13/18 12/15/19 Losartan [Cozaar] 25 mg PO DAILY@0700 04/13/18 12/15/19 Omeprazole [PriLOSEC] 20 mg PO DAILY@0630 07/01/18 12/15/19 Aspirin EC [Ecotrin] 325 - 650 mg PO Q4-6H PRN 12/15/19 12/15/19 Carbamide Peroxide [Debrox Otic] 4 drops BOTH EARS BID@0700,199912/15/19 12/15/19 Chap Stick 1 applic TOPICAL DAILY PRN 12/15/19 12/15/19 Cholecalciferol [Vitamin D3 (25 1,000 unit PO DAILY@0700 12/15/19 12/15/19 Mcg = 1000 Iu)] Colloidal Oatmeal [Eucerin Eczema 1 applic TOPICAL DAILY PRN 12/15/19 12/15/19 Relief] Loratadine-Pseudoeph 10-240 mg 1 tab PO HS PRN 12/15/19 12/15/19 [Claritin-D 24 Hour] Menthol-Zinc Oxide Oint 1 applic TOPICAL BID@08,199912/15/19 12/15/19 [Calmoseptine Oint] Oxymetazoline 0.05% Nasl [place] 2 sprays EA NOSTRIL BID@0700,199912/15/19 12/15/19 [Afrin 0.05% Nasal [place]] Pramoxine HCl/Zinc Acetate 1 applic TOPICAL DAILY PRN 12/15/19 12/15/19 [Caladryl Clear Lotion] Solarcaine [place] 1 applic TOPICAL DAILY PRN 12/15/19 12/15/19 Sun Screen 50+ 1 applicate TOPICAL DAILY PRN 12/15/19 12/15/19 guaiFENesin-DM 100-10MG/5ML 10 ml PO Q4H PRN 12/15/19 12/15/19 [Robitussin DM] Allergies Allergy/AdvReac Type Severity Reaction Status Date / Time No Known Allergies Allergy Verified 12/15/19 11:12 Review of Systems ROS Statement: Those systems with pertinent positive or pertinent negative responses have been documented in the HPI. ROS Other: All systems not noted in ROS Statement are negative. Past Medical History Past Medical History: GERD/Reflux, Hyperlipidemia Additional Past Medical History / Comment(s): DYSPHAGIA-pt needs food cut up and can feed self with staff watching her, HOB up at all times, has "tumor" in her throat treated with chemo/radiation but staff state it is noncancerous, cerebral palsey/mentally delayed, nonweight bearing-is chase lifted to wheelchair, needs to be turned-unable to do herself, incontinent urine/stool, bilateral leg edema. History of Any Multi-Drug Resistant Organisms: None Reported Past Surgical History: No Surgical Hx Reported Additional Past Surgical History / Comment(s): Thyroid surgery, peg tube during throat radiation-out now. Past Anesthesia/Blood Transfusion Reactions: No Reported Reaction Past Psychological History: Anxiety Smoking Status: Never smoker Past Alcohol Use History: None Reported Past Drug Use History: None Reported - Past Family History Father History Unknown: Yes Mother History Unknown: Yes General Exam - General Exam Comments Initial Comments: Constitutional: NAD, Pt has pleasant affect. HEENT: NC/AT, trachea midline, neck supple, no lymphadenopathy. Posterior pharynx non erythematous, without exudates. External ears appear normal, without discharge. Mucous membranes moist. Eyes PERRLA, EOM intact. There is no scleral icterus. No pallor noted. Cardiopulmonary: RRR, no murmurs, rubs or gallops, no JVD noted. Lungs CTAB in anterior and posterior ferrell. No peripheral edema. Abdominal exam: Abdomen soft and non-distended. Abdomen non-tender to palpation in all 4 quadrants. Bowel sounds active in LLQ. No hepatosplenomegaly. No ecchymosis Neuro: CN II-XII grossly intact. No nuchal rigidity. No raccon eyes, no trujillo sign, no hemotympanum. No cervical spinal tenderness. MSK: No posterior calf tenderness bilaterally, homans sign negative bilaterally. Posterior tibialis and radial pulse +2 bilaterally. Sensation intact in upper and lower extremities. Limitations: altered mental status Course Vital Signs 12/15/19 12/15/19 10:16 13:00 Temperature 96.9 F L 97.7 F Pulse Rate 94 90 Respiratory 20 18 Rate Blood Pressure 172/91 158/83 O2 Sat by Pulse 98 95 Oximetry Medical Decision Making - Medical Decision Making 64-year-old female patient ED for cough possible covered exposure. Physical exam negative for acute pathology. X-ray negative. Urine negative. Patient tested for covered. Discharged to follow up with primary care provider and return here if any worsening symptoms. Case discussed with Dr. Kirkpatrick. - Lab Data Lab Results 12/15/19 Range/Units 12:25 Urine Color Light Yellow Urine Appearance Clear (Clear) Urine pH 6.5 (5.0-8.0) Ur Specific [place] 1.009 (1.001-1.035) Urine Protein Negative (Negative) Urine Glucose (UA) Negative (Negative) Urine Ketones Negative (Negative) Urine Blood Negative (Negative) Urine Nitrite Negative (Negative) Urine Bilirubin Negative (Negative) Urine Urobilinogen <2.0 (<2.0) mg/dL Ur Leukocyte Esterase Small H (Negative) Urine WBC 1 (0-5) /hpf Ur Squamous Epith Cells <1 (0-4) /hpf Urine Bacteria Rare H (None) /hpf Urine Mucus Rare H (None) /hpf Disposition Clinical Impression: Cough Disposition: HOME SELF-CARE Condition: Stable Instructions (If sedation given, give patient instructions): Acute Cough (ED) Additional Instructions: Follow up with PCP tomorrow. Self quarentine until covid results. Return to ED with any worsening symptoms. Is patient prescribed a controlled substance at d/c from ED?: No Referrals: Tino Glass MD [Primary Care Provider] - 1-2 days
[2019-12-15 14:11] VITALS: BP 152/84; TEMP 97.6
== END 2019-12-15 14:11 | disposition home or self-care (01) ==
LOC: EC 10:12
DX: U07.1 COVID-19 (principal); F41.9 Anxiety disorder, unspecified; K21.9 Gastro-esophageal reflux disease without esophagitis; E78.5 Hyperlipidemia, unspecified; Z85.89 Personal history of malignant neoplasm of other organs and systems; Z92.21 Personal history of antineoplastic chemotherapy; Z92.3 Personal history of irradiation; Z79.899 Other long term (current) drug therapy
CPT/HCPCS: 81001; 71045; 99284; U0003

== ENCOUNTER → 2020-03-22 | Outpatient (CLI) | payer MEDICARE, OTHER ==
--- NOTE | 2020-03-26 12:11 | MM ---
Reason for exam: screening (asymptomatic). Last mammogram was performed 1 year and 6 months ago. History: Patient is postmenopausal. US discontinued breast bx LT of the left breast, April 29, 2018. Physical Findings: A clinical breast exam by your physician is recommended on an annual basis and results should be correlated with mammographic findings. MG 3D Screening Mammo W/Cad Bilateral CC and MLO view(s) were taken. Prior study comparison: September 19, 2018, left breast MG diagnostic mammo LT w CAD. March 21, 2018, left breast MG 3d work up w/cad LT. February 15, 2018, bilateral MG screening mammo w CAD. The breast tissue is heterogeneously dense. This may lower the sensitivity of mammography. Grouped central posterior calcifications left breast not seen previously. Magnification views recommended. ASSESSMENT: Incomplete: need additional imaging evaluation, BI-RAD 0 RECOMMENDATION: Special view mammogram of the left breast. Magnification views recommended. [facility] will attempt to contact patient to return for supplemental views.
== END | disposition home or self-care (01) ==
LOC: RADMAMWWP 14:39
PROVIDERS: ATTEND Surgery
DX: Z12.31 Encounter for screening mammogram for malignant neoplasm of breast (principal)
CPT/HCPCS: 77063; 77067

== ENCOUNTER → 2020-04-03 | Outpatient (CLI) | payer MEDICARE, OTHER ==
--- NOTE | 2020-04-03 12:08 | MM ---
Reason for exam: additional evaluation requested from abnormal screening. Last mammogram was performed less than 1 month ago. History: Patient is postmenopausal. US discontinued breast bx LT of the left breast, April 29, 2018. Physical Findings: Nurse did not find any significant physical abnormalities on exam. MG Follow Up LT No Charge Prior study comparison: March 22, 2020, bilateral MG 3d screening mammo w/cad. September 19, 2018, left breast MG diagnostic mammo LT w CAD. The patient is in a wheelchair and large size. Unable to obtain a lateral or magnification views. Patient unable to get on table for stereotactic biopsy. Upright 3D mammogram guided biopsy recommended. CC from above approach can be utilized. ASSESSMENT: Suspicious, BI-RAD 4 RECOMMENDATION: Stereotactic core biopsy of the left breast. 3D guided, CC from above, upright biopsy. Called with mammographic findings and has scheduled an appointment for the patient for 04/04/20 at 1:[address] Oropeza. PRELIMINARY REPORT CALLED AND FAXED TO DR. OROPEZA ON 04/03/20.
== END | disposition home or self-care (01) ==
LOC: EEVIPCON 10:20 → RADMAMWWP 10:24
PROVIDERS: ATTEND Surgery
DX: Z78.0 Asymptomatic menopausal state (principal)

== ENCOUNTER 2020-04-19 06:24 | Day surgery (SDC) | payer MEDICARE, OTHER ==
[~2020-04-19 06:24] MED LIST changes: +ACETAMINOPHEN TAB 500 MG TAB PO PRN; +DEXAMETHASONE SOD PHOSPHATE 4 MG/ML 1 ML VIAL IV ONE; +HEPARIN SODIUM,PORCINE 5,000 UNIT/ML 1 ML VIAL SQ PRN; +HYDROmorphone 0.5 MG/0.5 ML SYRINGE IVP PRN; +LIDOCAINE 1% (10MG/ML) FOR IV START INTRADERMA PRN; -LIDOCAINE 1% 20 ML VIAL (10MG/ML) FOR IV START INTRADERMA PRN; +ONDANSETRON 4 MG/2 ML VIAL IVP ONE; +Pre Op ABX Message 1 EACH MISC MISCELLANE ONE
[2020-04-19 06:53] VITALS: TEMP 98.8
[2020-04-19] MEDS ORDERED: ALPRAZolam 0.5 MG TAB PO ONE (07:03)
[2020-04-19] MEDS ORDERED: ALPRAZolam 0.5 MG TAB ONE (07:04)
[2020-04-19] MEDS ORDERED: LACTATED RINGERS 1,000 ML IV ONE ×2 (08:06)
[2020-04-19 08:38] VITALS: RESP 16
[2020-04-19 09:10] VITALS: BP 110/68; PULSE 88
== END 2020-04-19 09:08 | disposition home or self-care (01) ==
LOC: OR 06:24
PROVIDERS: ATTEND Surgery
DX: R92.8 Other abnormal and inconclusive findings on diagnostic imaging of breast (principal); Z53.9 Procedure and treatment not carried out, unspecified reason; K08.409 Partial loss of teeth, unspecified cause, unspecified class; I10 Essential (primary) hypertension; E78.5 Hyperlipidemia, unspecified; R62.50 Unspecified lack of expected normal physiological development in childhood; G80.9 Cerebral palsy, unspecified; R60.0 Localized edema; R13.10 Dysphagia, unspecified; Z93.1 Gastrostomy status; Z79.899 Other long term (current) drug therapy

== ENCOUNTER → 2022-08-05 | Outpatient (CLI) | payer MEDICARE, OTHER ==
--- NOTE | 2022-08-05 15:24 | MM ---
Reason for Exam: Screening (asymptomatic). Last mammogram was performed 1 year(s) and 2 month(s) ago. Patient History: Menarche at age 15. Postmenopausal. 04/29/2018, US discontinued breast bx LT on the left side. Risk Values: Mary Alice 5 year model risk: 1.2%. NCI Lifetime model risk: 4.7%. Prior Study Comparison: 03/22/2020 Bilateral Screening Mammogram, [facility]. 04/03/2020 Left Diagnostic Mammogram, [facility]. 05/13/2021 Bilateral Screening Mammogram, [facility]. Tissue Density: The breast tissue is heterogeneously dense. This may lower the sensitivity of mammography. Findings: Analyzed By CAD. There is no suspicious group of microcalcifications or new suspicious mass in either breast. Overall Assessment: Negative, BI-RAD 1 Management: Screening Mammogram of both breasts in [address] [facility] will attempt to contact patient to return for supplemental views and ultrasound if indicated. Patient should continue monthly self-breast exams. A clinical breast exam by your physician is recommended on an annual basis. This exam should not preclude additional follow-up of suspicious palpable abnormalities. Note on Mary Alice scores and lifetime risk: 1. A Mary Alice score greater than 3% is considered moderate risk. If this is the case, consider specialist referral to assess eligibility for a risk reducing agent. 2. If overall lifetime risk for the development of breast cancer is 20% or higher, the patient may qualify for future screening with alternating mammogram and breast MRI. Electronically signed and approved by: Gurinder Melton DO
== END | disposition home or self-care (01) ==
LOC: RADMAMWWP 14:46
PROVIDERS: ATTEND General Practice
DX: Z12.31 Encounter for screening mammogram for malignant neoplasm of breast (principal); Z78.0 Asymptomatic menopausal state
CPT/HCPCS: 77063; 77067

== ENCOUNTER → 2023-08-11 | Outpatient (CLI) | payer MEDICARE, OTHER ==
--- NOTE | 2023-08-14 18:02 | MM ---
Reason for Exam: Screening (asymptomatic). Last mammogram was performed 1 year(s) and 1 month(s) ago. Patient History: Menarche at age 15. Postmenopausal. 04/29/2018, US discontinued breast bx LT on the left side. Risk Values: Mary Alice 5 year model risk: 1.2%. NCI Lifetime model risk: 4.6%. Prior Study Comparison: 04/03/2020 Left Diagnostic Mammogram, [facility]. 05/13/2021 Bilateral Screening Mammogram, [facility]. 08/05/2022 Bilateral MG 3D screening mammo w/cad, [facility]. Tissue Density: The breasts are heterogeneously dense, which may obscure small masses. Findings: Analyzed By CAD. Asymmetric density superior right MLO view anterior ducts as well as centrally right MLO view anteriorly middle depth appear more pronounced. These may represent superimposition shadow but additional evaluation is recommended. Otherwise, no significant change. Overall Assessment: Incomplete: need additional imaging evaluation, BI-RAD 0 Management: Special View Mammogram of the right breast. [facility] will attempt to contact patient to return for supplemental views and ultrasound if indicated. Electronically signed and approved by: Orlin Ayala M.D. Radiologist
== END | disposition home or self-care (01) ==
LOC: RADMAMWWP 09:48
PROVIDERS: ATTEND General Practice
DX: Z12.31 Encounter for screening mammogram for malignant neoplasm of breast (principal); Z78.0 Asymptomatic menopausal state
CPT/HCPCS: 77063; 77067

== ENCOUNTER → 2023-08-18 | Outpatient (CLI) | payer MEDICARE, OTHER ==
--- NOTE | 2023-08-18 10:33 | MM ---
Reason for Exam: Additional evaluation requested from abnormal screening. Last screening mammogram was performed less than 1 month ago. Patient History: Menarche at age 15. Postmenopausal. 04/29/2018, US discontinued breast bx LT on the left side. Risk Values: Mary Alice 5 year model risk: 1.2%. NCI Lifetime model risk: 4.6%. Prior Study Comparison: 02/15/2018 Bilateral Screening Mammogram, [facility]. 03/21/2018 Left Diagnostic Mammogram, [facility]. 03/21/2018 Left Diagnostic Ultrasound, [facility]. 09/19/2018 Left Diagnostic Mammogram, [facility]. 03/22/2020 Bilateral Screening Mammogram, [facility]. 04/03/2020 Left Diagnostic Mammogram, [facility]. 05/13/2021 Bilateral Screening Mammogram, [facility]. 08/05/2022 Bilateral MG 3D screening mammo w/cad, [facility]. 08/11/2023 Bilateral MG 3D screening mammo w/cad, [facility]. Tissue Density: Right: The breasts are heterogeneously dense, which may obscure small masses. Findings: Analyzed By CAD. Pattern is stable. No persistent suspicious abnormal appearing densities evident. No spiculated or lobular masses are evident. Scattered benign punctate calcifications remain present. No suspicious groups of microcalcifications, spiculated or lobular masses, architectural distortion or other secondary signs of malignancy are mammographically apparent. Overall Assessment: Benign, BI-RAD 2 Management: Screening Mammogram of both breasts in 1 year. A negative mammogram report should not preclude additional follow up of suspicious palpable abnormalities. Patient should continue monthly self breast exam. A clinical breast exam by your physician is recommended on an annual basis and results should be correlated with mammographic findings. Note on Mary Alice scores and lifetime risk: 1. A Mary Alice score greater than 3% is considered moderate risk. If this is the case, consider specialist referral to assess eligibility for a risk reducing agent. 2. If overall lifetime risk for the development of breast cancer is 20% or higher, the patient may qualify for future screening with alternating mammogram and breast MRI. Electronically signed and approved by: Guzman Bazan D.O. Radiologis
== END | disposition home or self-care (01) ==
LOC: RADMAMWWP 09:49
PROVIDERS: ATTEND General Practice
DX: R92.8 Other abnormal and inconclusive findings on diagnostic imaging of breast (principal); R92.331 Mammographic heterogeneous density, right breast; Z78.0 Asymptomatic menopausal state
CPT/HCPCS: 77065; G0279; 77061